=== PATIENT | male | born 1990 | race Caucasian/White ===

== ENCOUNTER 2016-12-08 08:11 | Day surgery (SDC) | payer OTHER ==
[2016-12-07 10:33] VITALS: BMI 30.9
[2016-12-08 08:52] LABS: INR 1.2 (0.82-1.09); PROTHROMBIN TIME (PATIENT) 13.3 SEC (9.98-11.88)
[2016-12-08 08:55] LABS: ACTIVATED PTT 36.5 SECONDS (26.9-34.4)
--- NOTE | 2016-12-08 12:10 | PN ---
JUSTIN Mahan Note Chief Complaint: 26 yo male for testicular bx - Objective Vital Signs: Vital Signs Temperature 98.2 F 12/08/16 08:48 Pulse Rate 65 12/08/16 08:48 Respiratory Rate 20 12/08/16 08:48 Blood Pressure 125/72 12/08/16 08:48 O2 Sat by Pulse Oximetry (%) 100 12/08/16 08:48 Labs/Additional Data: INR, PTT INR 1.20 (0.82-1.09) H 12/08/16 08:19 Assessment/Plan pt to go to or f/u path results pt to follow up fri at 1015 am rest ice paks scrotal elevation pain management post op abx oob to chair as tolerated
[2016-12-08] MEDS ORDERED: OXYCODONE/APAP 5/325MG COMBO TABLET PO PRN (12:12)
--- NOTE | 2016-12-08 12:16 | OP ---
Operative Note - Note: Operative Date: 12/08/16 Pre-Operative Diagnosis: azoospermia Operation: test bx Post-Operative Diagnosis: Same as Pre-op Surgeon: Yuly Garcia Anesthesia: General Operative Report Dictated: Yes
[2016-12-08] MEDS ORDERED: MIDAZOLAM HCL 2 MG/2 ML SINGLE DOSE VIAL ONE (13:18)
[2016-12-08] MEDS ORDERED: PROPOFOL 20 ML ONE ×3 (13:18→13:49)
[2016-12-08] MEDS ORDERED: oxyCODONE HCL 5 MG TABLET PO PRN (13:36)
[2016-12-08] MEDS ORDERED: ACETAMINOPHEN 325 MG TABLET (FP) PO PRN (13:36)
[2016-12-08] MEDS ORDERED: ceFAZolin SODIUM 1 GM VIAL ONE (13:39)
[2016-12-08] MEDS ORDERED: BUPIVACAINE HCL/PF 0.25% (2.5MG/ML) 10 ML VIAL IJ ONE (13:40)
[2016-12-08] MEDS ORDERED: BUPIVACAINE HCL/PF 0.25% (2.5MG/ML) 10 ML VIAL ONE (13:41)
[2016-12-08] MEDS ORDERED: ceFAZolin SODIUM 1 GM VIAL IVPB ONE (13:44)
[2016-12-08] MEDS ORDERED: DEXAMETHASONE SOD PHOSPHATE 4 MG/1 ML VIAL ONE (13:45)
[2016-12-08] MEDS ORDERED: DESFLURANE GAS 240 ML BOTTLE IH ONE (13:55)
[2016-12-08] MEDS ORDERED: ONDANSETRON 4 MG/2 ML VIAL IVPUSH PRN (14:13)
[2016-12-08] MEDS ORDERED: IBUPROFEN 800 MG/8 ML IJ IVPB PRN (14:13)
[2016-12-08] MEDS ORDERED: LACTATED RINGERS SOLUTION 1,000 ML IV SCH (14:15)
[2016-12-08] MEDS ORDERED: IBUPROFEN 800 MG/8 ML IJ IVPB ONE (14:30)
[2016-12-08] MEDS ORDERED: oxyCODONE HCL 5 MG TABLET ONE (16:12)
[2016-12-08] MEDS ORDERED: CEPHALEXIN MONOHYDRATE 500 MG CAPSULE (UD) PO SCH (18:00)
[2016-12-08 20:33] VITALS: BP 116/73; PULSE 74; TEMP 98.3
--- NOTE | 2016-12-10 13:33 | PATH ---
Surgical Pathology Report Patient Name: BRAD VIVEROS [facility]. Rec. #: [id number] /Age/Gender: 1990 (Age: 26) / M Account: [id number] Location: [facility] SURGICAL Taken: 12/08/2016 Received: 12/09/2016 Reported: 12/10/2016 Physicians: Yuly Garcia M.D. Specimen(s) Received TESTICULAR BIOPSY RIGHT SIDE Clinical History Azoospermia Final Diagnosis TESTIS, RIGHT, BIOPSY: BENIGN TESTICULAR PARENCHYMA WITH PRESERVED SPERMATOGENESIS. NO MALIGNANCY IDENTIFIED. NO SIGNIFICANT INFLAMMATION OR GRANULOMATA IDENTIFIED. Electronically Signed Darrius Hoffman M.D. Gross Description Received in formalin labeled "testicular biopsy right side" are 3 blair soft tissue fragments ranging from 0.7-0.9 cm in greatest dimension. The specimens are submitted in toto in one cassette. /12/09/201612/09/2016
== END 2016-12-08 17:00 | disposition home or self-care (01) ==
LOC: JASU-SURG 08:11
PROVIDERS: ATTEND Urology
PROC: 0VB50ZX Excision of Scrotum, Open Approach, Diagnostic (ICD-10-PCS; principal; 2016-12-08 11:00)
DX: N46.01 Organic azoospermia (principal)
CPT/HCPCS: 36415; 85610; 85730; 88307-TC; 94760